=== PATIENT | male | born 1970 | race Caucasian/White ===

== ENCOUNTER → 2022-04-23 | Outpatient (CLI) | payer BC ==
[~2022-04-23] MED LIST: COLACE 100MG C100 MG PO; CRESTOR40 MG PO; FENOFIBRATE200 MG PO; GLUCOPHAGE1000 MG PO; IBUPROFEN800 MG PO; LOVAZA1 GM PO; MILK OF MA400 MG/5 M PO; NEURONTIN300 MG PO; NORCO 10-325 T1 EACH PO; OZEMPIC1 MG/0.75 SQ; ROPINIROLE HCL1 MG PO; ZETIA10 MG PO; ZOFRAN4 MG PO
== END ==
LOC: KOH-I 14:26
DX: M51.16 Intervertebral disc disorders with radiculopathy, lumbar region (principal)
CPT/HCPCS: 72100